=== PATIENT | female | born 1985 | race American Indian/Alaskan Native ===

== ENCOUNTER 2016-08-09 18:09 | Emergency (ER) | payer SELFPAY ==
--- NOTE | 2016-08-10 00:46 | Emergency Department Report ---
Chief Complaint: Upper Respiratory Infection Stated Complaint: DIABETIC/COLD SX/POSS FLU Time Seen by Provider: 08/10/16 00:38 - HPI History of Present Illness: Patient here reports that she is having an cold symptoms and chills with shortness of breath, cough and chest pain. She says she is a diabetic and she is on insulin. She did not take her temperature today. She has that she took her insulin this morning but she does not have a primary care so she doesn't have anyone to follow up with her diabetes. [id number] blood sugars at 367. Chest pain is located to mid chest - ROS Review of Systems: Systems are negative unless stated in HPI above. - Exam Vital Signs: Vital Signs 08/09/16 08/10/16 18:36 00:33 Temperature 98.5 F 99.9 F H Pulse Rate 85 93 H Respiratory 18 20 Rate Blood Pressure 122/80 Blood Pressure 132/93 [Left] O2 Sat by Pulse 100 98 Oximetry Physical Exam: General: This is a 30-year-old female well-nourished well-developed in no acute distress. Cardiovascular: S1 S@ regular rate rhythm. Lungs: Normal work of breathing. No use of accessory muscles. MSE screening note: Focused history and physical exam performed. Due to findings the following was ordered:POC BG 367 Patient discussed with doctor:: YARA ARTEAGA (charge nurse notified.) ED Medical Decision Making - Lab Data POC blood glucose 367 - Medical Decision Making Medical decision making: Patient seen by provider in triage area. Appropriate protocol activated and patient to main ED to be seen by physician. ED Disposition for MSE Condition: Stable Referrals: PRIMARY CARE, [Primary Care Provider] - 3-5 Days
--- NOTE | 2016-08-10 01:06 | XRay Report ---
FINAL REPORT PROCEDURE: XR CHEST ROUTINE 2V TECHNIQUE: PA and lateral chest radiographs were obtained. CPT 42698 HISTORY: cough/sob COMPARISON: No prior studies are available for comparison. FINDINGS: Heart: Normal. Mediastinum/Vessels: Normal. Lungs/Pleural space: Normal. Bony thorax: No acute osseous abnormality. Other: IMPRESSION: There is no evidence of an acute cardiopulmonary process.
[2016-08-10] MEDS ORDERED: NACL 0.9% 1000 ML 1,000 ML IV ONE ×2 (01:28→02:43)
[2016-08-10 01:33] LABS: Basophils % (Auto) 0.5 % (0.0-1.8); Eosinophils % (Auto) 3.7 % (0.0-4.3); Hematocrit 40.3 % (30.3-42.9); Mean Corpuscular HGB Conc 32 % (30-34); Mean Corpuscular Volume 75 fl (79-97); Platelet Count 233 K/mm3 (140-440); Red Blood Count 5.36 M/mm3 (3.65-5.03); Red Cell Distribution Width 17.1 % (13.2-15.2); White Blood Count 8.8 K/mm3 (4.5-11.0)
[2016-08-10 01:34] LABS: Bilirubin,Urine NEG (Negative); Blood,Urine NEG (Negative); Ketones,Urine NEG (Negative); Leukocyte Esterase,Urine NEG (Negative); Nitrite,Urine NEG (Negative); Protein,Urine <15 mg/dL mg/dL (Negative); Urobilinogen,Urine < 2.0 mg/dL (<2.0)
[2016-08-10 01:35] LABS: Mean Corpuscular Hemoglobin 24 pg (28-32)
[2016-08-10 01:40] LABS: WBC,Urine < 1.0 /HPF (0.0-6.0)
--- NOTE | 2016-08-10 01:59 | Emergency Department Report ---
ED Shortness of Breath HPI - General Chief Complaint: Upper Respiratory Infection Stated Complaint: DIABETIC/COLD SX/POSS FLU Time Seen by Provider: 08/10/16 00:38 Source: patient Mode of arrival: Ambulatory Limitations: No Limitations - History of Present Illness Initial Comments: Patient is a 30-year-old female with history of diabetes presenting to the ER with multiple complaints. Patient point she's been feeling "fluish" with associated cough, congestion, chest pain with cough patient reports she is also diabetic and has been noncompliant with her insulin due to loss of insurance and her job, patient reports she is to get her insulin with her "Jorge card". Patient reports he spent months she's been taking her insulin regularly. Otherwise no fevers, chills, nausea, vomiting, abdominal pain, trauma, falls, travel, or sick contacts. - Related Data Previous Rx's Medication Instructions Recorded Last Taken Type Butalb/Acetamin/Caff 50-325-40 1 tab PO Q6HR PRN #12 tab 05/21/16 Unknown Rx [Fioricet] Ondansetron [Zofran Odt] 4 mg PO Q8HR PRN #10 tab.rapdis 05/21/16 Unknown Rx Allergies Allergy/AdvReac Type Severity Reaction Status Date / Time lisinopril Allergy Swelling Verified 05/21/16 11:09 ED Review of Systems ROS: Stated complaint: DIABETIC/COLD SX/POSS FLU Other details as noted in HPI Comment: All other systems reviewed and negative ED Past Medical Hx - Past Medical History Previous Medical History?: Yes Hx Diabetes: Yes (TYPE 1- non compliant ) - Surgical History Past Surgical History?: Yes Additional Surgical History: endoscopic procedure - Social History Smoking Status: Never Smoker Substance Use Type: None - Medications Home Medications: Home Medications Medication Instructions Recorded Confirmed Last Taken Type Butalb/Acetamin/Caff 50-325-40 1 tab PO Q6HR PRN #12 tab 05/21/16 Unknown Rx [Fioricet] Ondansetron [Zofran Odt] 4 mg PO Q8HR PRN #10 tab.rapdis 05/21/16 Unknown Rx ED Physical Exam - General Limitations: No Limitations General appearance: alert, in no apparent distress - Head Head exam: Present: atraumatic, normocephalic - Eye Eye exam: Present: normal appearance - ENT ENT exam: Present: mucous membranes moist - Neck Neck exam: Present: normal inspection - Respiratory Respiratory exam: Present: normal lung sounds bilaterally. Absent: respiratory distress - Cardiovascular Cardiovascular Exam: Present: regular rate, normal rhythm. Absent: systolic murmur, diastolic murmur, rubs, gallop - GI/Abdominal GI/Abdominal exam: Present: soft, normal bowel sounds - Extremities Exam Extremities exam: Present: normal inspection - Back Exam Back exam: Present: normal inspection - Neurological Exam Neurological exam: Present: alert, oriented X3 - Psychiatric Psychiatric exam: Present: normal affect, normal mood - Skin Skin exam: Present: warm, dry, intact, normal color. Absent: rash ED Course Vital Signs 08/09/16 08/10/16 08/10/16 18:36 00:33 02:28 Temperature 98.5 F 99.9 F H Pulse Rate 85 93 H Respiratory 18 20 18 Rate Blood Pressure 122/80 Blood Pressure 132/93 [Left] O2 Sat by Pulse 100 98 Oximetry - Reevaluation(s) Reevaluation #1: 08/10/16 04:22 Pt re-evaluated, improved FSG 238 after 1.5L NS IVF and 8 units of insulin. Pt is not in DKA, only hyperglycemic Pt instructed to follow up with [facility] P ED Medical Decision Making - Lab Data Result diagrams: 08/10/16 01:09 08/10/16 01:09 - EKG Data 08/10/16 01:57 Time 122. Normal sinus rhythm at 85 bpm, QTC 433 ms, normal axis, left atrial enlargement, Q waves in lead 3, T-wave inversion in III and V2, no ST changes no STEMI Critical care attestation.: If time is entered above; I have spent that time in minutes in the direct care of this critically ill patient, excluding procedure time. ED Disposition Clinical Impression: Hyperglycemia, URI (upper respiratory infection) Disposition: DISCHARGED TO HOME OR SELFCARE Is pt being admited?: No Condition: Stable Instructions: Diabetic Hyperglycemia (ED) Referrals: PRIMARY CARE, [Primary Care Provider] - 3-5 Days [facility] [Provider Group] - 3-5 Days
[2016-08-10 02:15] LABS: Anion Gap 18 mmol/L; Blood Urea Nitrogen 9 mg/dL (7-17); Carbon Dioxide 26 mmol/L (22-30); Chloride 98.1 mmol/L (98-107); Glucose 340 mg/dL (65-100); Potassium 4.1 mmol/L (3.6-5.0); Sodium 138 mmol/L (137-145)
[2016-08-10 02:16] LABS: Alanine Aminotransferase 12 units/L (7-56); Albumin 4.1 g/dL (3.9-5); Albumin/Globulin Ratio 1.3 %; Alkaline Phosphatase 65 units/L (35-129); Total Protein 7.2 g/dL (6.3-8.2)
[2016-08-10 02:21] LABS: Bilirubin,Direct < 0.2 mg/dL (0-0.2); Bilirubin,Indirect 0.4 mg/dL
[2016-08-10] MEDS ORDERED: PHENERGAN/CODEINE 6.25-10 MG/5ML PO ONE (02:50)
[2016-08-10 04:27] VITALS: BP 119/90
== END 2016-08-10 04:30 | disposition home or self-care (01) ==
LOC: ED 18:09
DX: J06.9 Acute upper respiratory infection, unspecified (principal); E10.65 Type 1 diabetes mellitus with hyperglycemia; Z88.8 Allergy status to other drugs, medicaments and biological substances
CPT/HCPCS: 36415; 71020; 80048; 80074; 81001; 82805; 82962; 84484; 84703; 85025; 85379; 87400; 93005; 93010; 96361; 96374; 99285; J7030; J1815